=== PATIENT | female | born 1995 | race Caucasian/White ===

== ENCOUNTER → 2016-12-06 | Outpatient (CLI) | payer OTHER ==
[~2016-12-06] MED LIST: ESCI10TA17 PO; LEVO112T4 PO; LEVO125T5 PO
[2016-12-06 17:54] LABS: THYROID STIMULATING HORMONE 1.45 uIu/ml (0.300-4.500)
== END | disposition home or self-care (01) ==
LOC: C.LAB1850 16:33
PROVIDERS: ATTEND Physician Assistant
DX: E06.3 Autoimmune thyroiditis (principal)

== ENCOUNTER → 2017-01-09 | Day surgery (SDC) | payer OTHER ==
[2017-01-03 13:06] VITALS: Ht 170.2 cm; Wt 77.3 kg
[~2017-01-09] VITALS: Ht 170.2 cm; Wt 77.3 kg
[~2017-01-09] MED LIST changes: +FENTANYL CITRATE INJ 50 MCG/1 ML 2 ML VIAL ONE; +MIDAZOLAM HCL 5 MG/ML 1 ML VIAL ONE; +SODIUM CHLORIDE 0.9% 500ML 500 ML IV ONE
--- NOTE | 2017-01-09 10:43 | Endo History and Physical ---
History & Physical Date of Service: Jan 09, 2017. Chief Complaint: celiac,abnormal labs Referring Physician: [facility] History of Present Illness 21 yo CF who presents for EGD secondary to abnormal Celiac Ab testing. Past Surgical History Hx Cardiac Surgery: No Hx Internal Defibrillator: No Hx Pacemaker: No Hx Abdominal Surgery: No Hx of Implantable Prosthesis: No Hx Post-Op Nausea and Vomiting: Yes Hx Cancer Surgery: No Hx Thoracic Surgery: No Hx Orthopedic: No Hx Urinary Tract Surgery: No Family History None Social History Smoking Status: Never Smoker Hx Substance Use: No Hx Alcohol Use: Yes (OCCASIONALLY) Allergies Coded Allergies: Benzoyl Peroxide (Verified Allergy, Unknown, 2ND DEGREE CHEMICAL BURN, ) Current Medications Reported Home Medications Medications Dose Route/Sig Max Daily Dose Days Date Category Levothyroxine Sodium 112 Mcg Tab 1 Tab PO QAM 90 01/03/17 Reported Vital Signs Weight (Kilograms): 77.27 Height (Feet): 5 Height (Inches): 7 Date Time Temp Pulse Resp B/P (MAP) Pulse Ox O2 Delivery O2 Flow Rate FiO2 01/09/17 10:37 36.6 72 16 119/77 (91) 100 Room Air Physical Exam General Appearance: WD/WN, no apparent distress Respiratory/Chest: Auscultation: breath sounds normal Cardiovascular: Heart Auscultation: RRR Abdomen: Bowel Sounds: normal Inspection & Palpation: soft, non-distended, no tenderness, guarding & rebound Assessment and Plan Assessment: 21 yo CF who presents for EGD secondary to abnormal Celiac Ab testing. Plan: Proceed with EGD.
--- NOTE | 2017-01-09 11:47 | GI REPORT ---
Procedure Date: 01/09/2017 11:08 AM Procedure: Upper GI endoscopy Indications: Positive celiac serologies Medicines: Fentanyl 100 micrograms IV, Midazolam 6 mg IV Complications: No immediate complications. Estimated Blood Loss: Estimated blood loss: none. Procedure: Pre-Anesthesia Assessment: - Prior to the procedure, a History and Physical was performed, and patient medications and allergies were reviewed. The patient's tolerance of previous anesthesia was also reviewed. The risks and benefits of the procedure and the sedation options and risks were discussed with the patient. All questions were answered, and informed consent was obtained. Prior Anticoagulants: The patient has taken no previous anticoagulant or antiplatelet agents. ASA Grade Assessment: I - A normal, healthy patient. After reviewing the risks and benefits, the patient was deemed in satisfactory condition to undergo the procedure. After obtaining informed consent, the endoscope was passed under direct vision. Throughout the procedure, the patient's blood pressure, pulse, and oxygen saturations were monitored continuously. The scope was introduced through the mouth, and advanced to the second part of duodenum. The upper GI endoscopy was accomplished without difficulty. The patient tolerated the procedure well. Findings: The esophagus was normal. The entire examined stomach was normal. Biopsies were taken with a cold forceps for Helicobacter pylori testing. The examined duodenum was normal. Biopsies for histology were taken with a cold forceps for evaluation of celiac disease. Impression: - Normal esophagus. - Normal stomach. Biopsied. - Normal examined duodenum. Biopsied. Recommendation: - Resume previous diet. - Continue present medications. - Await pathology results. - Return to GI office as previously scheduled. Raz Ojeda DO 01/09/2017 11:47:14 AM This report has been signed electronically. Note Initiated On: 01/09/2017 11:08 AM I attest to the content of the Intraoperative Record and orders documented therein, exceptions below
--- NOTE | 2017-01-09 11:49 | Discharge Instructions ---
Endoscopy Patient Instructions Date / Procedure(s) Performed Jan 09, 2017. EGD Allergy Information Coded Allergies: Benzoyl Peroxide (Verified Allergy, Unknown, 2ND DEGREE CHEMICAL BURN, ) Discharge Date / Findings Jan 09, 2017. Gastric antrum biopsies Duodenal biopsies Medication Instructions OK to resume all medications today as prescribed Medications Dose Route/Sig Max Daily Dose Days Date Category Levothyroxine Sodium 112 Mcg Tab 1 Tab PO QAM 90 01/03/17 Reported Provider Instructions Activity Restrictions - No exercising or heavy lifting for 24 hours. - Do not drink alcohol the day of the procedure. - Do not drive a car or operate machinery until the day after the procedure. - Do not make any important decisions or sign important papers in 24 hours after the procedure. Following Day: - Return to full activity which may include returning to work/school. Diet Start your diet with liquids and light foods (jello, soup, juice, toast). Then eat your usual diet if not nauseated. Treatment For Common After Affects For mild abdominal pain, bloating, or excessive gas: - Rest - Eat lightly - Lie on right side Follow-Up Information Follow-up with [facility] as scheduled Anesthesia Information What You Should Know You have had a procedure that required some medicine to reduce anxiety and discomfort. This treatment is called moderate sedation. After receiving the treatment, you may be sleepy, but you will be able to breathe on your own. The effects of the treatment may last for several hours. Follow these instructions along with Activity/Diet recommendations noted above: * Do NOT do anything where dizziness or clumsiness would be dangerous. * Rest quietly at home today, then you can be up and about tomorrow. * Have a responsible person stay with you the rest of today. * You may have had an I.V. today. If so, you may take the dressing off later today. Recommendations Call your doctor if: * Trouble breathing * Continuous vomiting for more than 24 hours * Temperature above 101 degrees * Severe abdominal pain or bloating * Pain not relieved by pain medicine ordered * There is increased drainage or redness from any incision * A large amount of rectal bleeding greater than 2-3 tablespoons. (If you had a polyp/s removed or have hemorrhoids, a small amount of blood - from the rectum is to be expected.) * You have any unanswered questions or concerns. IN THE EVENT OF A SERIOUS EMERGENCY, GO TO THE NEAREST EMERGENCY ROOM Your discharge instructions were prepared by provider Raz Ojeda. Patient Instructions Signature Page Ania De Guzman Patient (or Guardian) Signature/Date: I have read and understand the instructions given to me by my caregivers. Caregiver/RN/Doctor Signature/Date: The above-named patient and/or guardian has received patient instructions on this date. + Original Patient Signature Page (only) stays with chart. Please make copy for patient.
[2017-01-09 12:23] VITALS: BP 122/74; PULSE 82; O2SAT 98
== END | disposition home or self-care (01) ==
LOC: C.GI 10:15
PROVIDERS: ATTEND Internal Medicine
DX: R76.8 Other specified abnormal immunological findings in serum (principal); K29.50 Unspecified chronic gastritis without bleeding

== ENCOUNTER → 2017-03-28 | Outpatient (CLI) | payer OTHER ==
[~2017-03-28] MED LIST changes: -ESCI10TA17 PO; -FENTANYL CITRATE INJ 50 MCG/1 ML 2 ML VIAL ONE; -LEVO125T5 PO; -MIDAZOLAM HCL 5 MG/ML 1 ML VIAL ONE; -SODIUM CHLORIDE 0.9% 500ML 500 ML IV ONE
[2017-03-28 11:43] LABS: THYROID STIMULATING HORMONE 2.53 uIu/ml (0.300-4.500)
== END | disposition home or self-care (01) ==
LOC: C.LAB1850 09:48
PROVIDERS: ATTEND Internal Medicine Endocrinology, Diabetes & Metabolism
DX: E06.3 Autoimmune thyroiditis (principal); E04.9 Nontoxic goiter, unspecified; E03.9 Hypothyroidism, unspecified

== ENCOUNTER 2017-06-07 00:25 | Emergency (ER) | payer OTHER ==
[~2017-06-07] VITALS: Ht 170.2 cm; Wt 79.7 kg
[2017-06-07 00:27] VITALS: TEMP 37; Ht 170.2 cm; Wt 79.7 kg
--- NOTE | 2017-06-07 00:51 | EMERGENCY ROOM VISIT NOTE ---
History Report prepared by Camron: Roro Chen Under the Supervision of: Dr. Erinn Zambrano M.D. First contact with patient: 00:32 Chief Complaint: HEAD INJURY (MINOR) Stated Complaint: HEAD PAIN,NAUSEA,DIZZY,VOMITING History of Present Illness The patient is a 21 year old female who presents to the Emergency Room with complaints of a sudden head injury occurring at 2030 yesterday. The patient states that she was playing flag football, got tackled, and hit her head on the grass field. The patient denies passing out after she hit her head, but states that she did vomit after. She states that she has had a headache, stomachache, and dizziness. Per her boyfriend, the patient was slightly confused upon arrival. Source of History: patient, spouse/significant other (boyfriend) Onset: 2029 yesterday Position: head Quality: other (injury ) Timing: other (sudden) Associated Symptoms: + headache, + vomiting, + abdominal pain, + weakness ( dizziness) Note: denies: passing out Review of Systems See HPI for pertinent positives & negatives. A total of 10 systems reviewed and were otherwise negative. Past Medical & Surgical Medical Problems: (1) Asthma (2) Bronchitis (3) Pneumonia (4) Ulcer Family History Cancer Heart disease Hypertension Kidney disease Lung disease Social History Smoking Status: Never Smoker Marital Status: in relationship Housing Status: lives with roommate Occupation Status: [employer] student Current/Historical Medications Scheduled Escitalopram (Lexapro), 10 MG PO DAILY Levothyroxine Sodium (Levothyroxine Sodium), 125 TAB PO DAILY Allergies Coded Allergies: Benzoyl Peroxide (Verified Allergy, Unknown, 2ND DEGREE CHEMICAL BURN, ) Gluten (Verified Adverse Reaction, Intermediate, GI UPSET, 06/07/17) Physical Exam Vital Signs Date Time Temp Pulse Resp B/P (MAP) Pulse Ox O2 Delivery O2 Flow Rate FiO2 06/07/17 01:57 78 20 106/62 99 06/07/17 00:27 37.0 86 20 126/87 99 Room Air Physical Exam Vital signs reviewed. General: Well-appearing female, in no significant distress. HEENT: No scleral icterus, PERRLA, neck supple. Atraumatic. Cardiovascular: Regular rate and rhythm, no extra sounds. Pulmonary: Clear to auscultation bilaterally, normal work of breathing. Abdomen: Soft, nontender, nondistended, positive bowel sounds. Musculoskeletal: Atraumatic, no peripheral edema. Mild tenderness to lumbar paraspinous muscles. Neurologic: Patient awake alert and oriented x 3, full strength in all 4 extremities. Cranial nerves 2 through 12 grossly intact. Answers questions slowly. Skin: Warm, dry, no rash Medical Decision & Procedures ER Provider Diagnostic Interpretation: Radiology results as stated below per my review and [facility]. CT HEAD: No skull fracture. No evidence of acute intracranial process. Medications Administered Medications (Trade) Dose Ordered Sig/Sary Route Start Time Stop Time Status Last Admin Dose Admin Acetaminophen (Tylenol Tab) 650 mg NOW STAT PO 06/07/17 01:48 06/07/17 01:50 DC 06/07/17 01:53 650 MG Ondansetron HCl (Zofran Odt) 4 mg ONE ONCE PO 06/07/17 02:00 06/07/17 02:01 DC 06/07/17 01:53 4 MG ED Course 0032: Past medical records reviewed. The patient was evaluated in room A10. A complete history and physical examination was performed. 0130: I checked on the patient. 0148: Ordered Tylenol Tab 650 mg PO. 0200: Ordered Zofran Odt 4 mg PO. 0205: Upon reevaluation, the patient appeared to have improvement of her symptoms. I discussed findings with her. She verbalized agreement of the treatment plan. She was discharged home. Medical Decision Differential diagnosis: Etiologies such as fracture, dislocation, intra-abdominal, pneumothorax, intrathoracic , intracranial, neurologic, as well as other traumatic pathologies were entertained. hematoma, intraparenchymal hemorrhage, as well as others were deemed relatively unlikely. This patient was evaluated and appeared to be in no significant distress. Physical examination reveals no significant injury. The patient's rather sluggish speech appears to be somewhat psychosomatic as it is not consistent. There are no focal neurologic deficits. I did discuss conservative management with the patient and her boyfriend at the bedside. They were uncomfortable with the plan to not image. A CT scan of the head was performed and is negative for acute findings. Patient was given head injury instruction sheet. She will be staying with her boyfriend this evening. They will return to the ER for worsening of symptoms or any medical concerns. Head Trauma GCS Score: 15 Medication Reconcilliation Current Medication List: was personally reviewed by me Blood Pressure Screening Patient's blood pressure: Normal blood pressure Impression Primary Impression: Closed head injury Scribe Attestation The scribe's documentation has been prepared under my direction and personally reviewed by me in its entirety. I confirm that the note above accurately reflects all work, treatment, procedures, and medical decision making performed by me. Departure Information Dispostion Home / Self-Care Referrals No Doctor, Assigned (PCP) Forms HOME CARE DOCUMENTATION FORM, IMPORTANT VISIT INFORMATION Patient Instructions ED Head Injury Closed, My [facility] Additional Instructions Diagnosis: Closed head injury Tylenol 650 mg every 6 hours as needed for pain. Zofran 4 mg ODT every 6 hours as needed for nausea. Drink plenty of clear fluids. Avoid alcohol in excess of caffeine. Avoid further head injury for at least 2 weeks or until symptoms resolve. Follow-up with [facility] services if symptoms persist. Return to the ER for worsening of symptoms or any medical concerns.
[2017-06-07] MEDS ORDERED: LEVO125T5 PO (01:29)
[2017-06-07] MEDS ORDERED: ESCI10TA17 PO (01:31)
[2017-06-07] MEDS ORDERED: ACETAMINOPHEN 325 MG TAB PO STA (01:48)
[2017-06-07 01:57] VITALS: BP 106/62; PULSE 78; O2SAT 99
[2017-06-07] MEDS ORDERED: ONDANSETRON 4MG OD TAB PO ONE (02:00)
--- NOTE | 2017-06-07 06:57 | DIAGNOSTIC IMAGING REPORT ---
CT HEAD WITHOUT CONTRAST (CT) CLINICAL HISTORY: Head pain status post head trauma. Nausea and vomiting. COMPARISON STUDY: No previous studies for comparison. TECHNIQUE: Axial CT of the brain is performed from the vertex to the skull base. IV contrast was not administered for this examination. A dose lowering technique was utilized adhering to the principles of ALARA. CT DOSE: 537.48 mGy.cm FINDINGS: No intra or extra-axial mass lesions are visualized. There is no CT evidence of acute cortical infarction. There is no evidence of midline shift. There is no acute hemorrhage. No calvarial fractures are visualized. There is no evidence of pathologic ventricular dilatation. There is no evidence of acute sinusitis IMPRESSION: Normal noncontrast head CT. Electronically signed by: Isidoro Carbajal M.D. 06/07/2017 6:55 AM Dictated Date/Time: 06/07/2017 6:54 AM
== END 2017-06-07 01:58 | disposition home or self-care (01) ==
LOC: C.EDB 00:27 → C.EDA 01:58
DX: S09.90XA Unspecified injury of head, initial encounter (principal); W03.XXXA Other fall on same level due to collision with another person, initial encounter; W22.8XXA Striking against or struck by other objects, initial encounter; Y93.62 Activity, american flag or touch football; Y99.8 Other external cause status; J45.909 Unspecified asthma, uncomplicated; Z87.01 Personal history of pneumonia (recurrent); Z82.49 Family history of ischemic heart disease and other diseases of the circulatory system

== ENCOUNTER → 2017-11-14 | Outpatient (CLI) | payer OTHER ==
[~2017-11-14] MED LIST changes: +ESCI10TA17 PO; -LEVO112T4 PO; +LEVO125T5 PO
== END | disposition home or self-care (01) ==
LOC: C.LAB1850 10:03
PROVIDERS: ATTEND Internal Medicine Endocrinology, Diabetes & Metabolism
DX: E06.3 Autoimmune thyroiditis (principal); E04.9 Nontoxic goiter, unspecified; E03.9 Hypothyroidism, unspecified